=== PATIENT | female | born 1995 ===

== ENCOUNTER → 2021-07-28 | Outpatient (CLI) | payer OTHER ==
--- NOTE | 2021-07-28 17:09 | KCIC ---
Study: MRI right ankle without contrast INDICATION: Chronic right ankle pain. COMPARISON: 12/06/2019 right ankle radiographs. TECHNIQUE: Multiplanar MR imaging of the right ankle performed without the use of intravenous or intr a-articular contrast. FINDINGS: Bones/cartilage: No acute or subacute fracture. No chondral defect identified at the ankle or subchon dral edema/cystic change. No osseous coalition. Alignment is within normal limits considering nonweig htbearing status. Ligaments: Intact distal syndesmosis. The ATFL, CFL and PTFL are intact. Mildly thickened ATFL and CF L but with normal signal. Unremarkable deltoid ligament complex. Intact spring and Lisfranc ligaments . Musculotendinous: Intact and normally located peroneal tendons. Intact PTT, FDL and FHL. Normal signa l and morphology of the Achilles. Unremarkable extensors. No significant volume tendon sheath fluid w ith only a small amount of fluid along the flexor hallucis longus that communicates with the ankle caitlyn int and at the knot of Apolinar. The intrinsic foot musculature exhibits normal bulk and signal. Sinus Tarsi: Normal fatty signal. Tarsal tunnel: Unremarkable. Plantar fascia: Normal signal and morphology. Miscellaneous: No large joint effusion. Unremarkable superficial soft tissues. IMPRESSION: No acute osseous, ligament or tendon abnormality at the ankle or throughout the imaged foot. No findi ngs to indicate significant previous trauma at the ankle such as ligamentous attenuation or absence. Collectively unremarkable exam. Electronically signed by: MUSA TORRES MD (07/28/2021 5:06 PM) [id number]
== END ==
LOC: KCIC MRI 10:56
PROVIDERS: ATTEND Family Medicine
DX: M25.571 Pain in right ankle and joints of right foot (principal)
CPT/HCPCS: 73721